=== PATIENT | female | born 1935 | race Caucasian/White ===

== ENCOUNTER 2016-09-10 12:34 | Day surgery (SDC) | payer MEDICARE, OTHER ==
--- NOTE | ~2016-09-10 | EGD ---
EGD REPORT [facility] [address] [place] [address] NAME: LALO COSTA : [birth year] STATUS : REG [facility] [place] PAT#: [id number] AGE: 81 ADM/REG DATE : 09/10/16 MR#: [id number] REPORT SERV DATE: 09/10/16 DICTATED BY: DATE: REPORT STATUS : Draft TRANSCRIBED BY: [employer] DATE: 09/10/16 [facility] Center Patient Name: Lalo Costa Date of : 1935 Attending MD: EMILY KUO MD Procedure Date No Time: 09/10/2016 Procedure: Colonoscopy Indications: Abdominal pain in the left lower quadrant Referring MD: DEVYN CABELLO MD, DEVYN ALEMAN III, MD Medicines: Monitored Anesthesia Care Complications: No immediate complications. Procedure: Pre-Anesthesia Assessment: - ASA Grade Assessment: II - A patient with mild systemic disease. After I obtained informed consent, the scope was passed under direct vision. Throughout the procedure, the patient's blood pressure, pulse, and oxygen saturations were monitored continuously. The PCF [id number] was introduced through the anus and advanced to the terminal ileum, with identification of the appendiceal orifice and IC valve. The colonoscopy was performed without difficulty. The patient tolerated the procedure well. The quality of the bowel preparation was adequate. Findings: The digital rectal exam was normal. Pertinent negatives include no palpable rectal lesions. The terminal ileum appeared normal. Multiple diverticula were found in the sigmoid colon. Hemorrhoids were found during retroflexion and were mild. Impression: - The examined portion of the ileum was normal. - Diverticulosis in the sigmoid colon. - Hemorrhoids. Recommendation: - Patient has a contact number available for emergencies. The signs and symptoms of potential delayed complications were discussed with the patient. Return to normal activities tomorrow. Written discharge instructions were provided to the patient. - Regular diet. - Continue present medications. - Repeat colonoscopy is not recommended for screening purposes. - Return to GI clinic PRN. EGD REPORT [facility] [address] [place] [address] NAME: LALO COSTA : [birth year] STATUS : REG [facility]#: [id number] AGE: 81 ADM/REG DATE : 09/10/16 MR#: [id number] REPORT SERV DATE: 09/10/16 DICTATED BY: DATE: REPORT STATUS : Draft TRANSCRIBED BY: [employer] DATE: 09/10/16 Procedure Code(s): --- Professional --- 87620, Colonoscopy, flexible, proximal to splenic flexure; diagnostic, with or without collection of specimen(s) by brushing or washing, with or without colon decompression (separate procedure) Diagnosis Code(s): --- Professional --- K64.9, Unspecified hemorrhoids K57.30, Diverticulosis of large intestine without perforation or abscess without bleeding R10.32, Left lower quadrant pain CPT copyright 2013 [employer]. All rights reserved. The codes documented in this report are preliminary and upon sand molder review may be revised to meet current compliance requirements. EMILY KUO MD 09/10/2016 3:15 PM This report has been signed electronically. Number of Addenda: 0 Note Initiated On: 09/10/2016 2:41 PM Scope Withdrawal Time 0 hours 9 minutes 20 seconds [address] [place] [address]
[~2016-09-10 12:34] MED LIST: AMB5 PO; AMIT25 PO; CALCIUM PO; EVISTA60 PO; GLUCCHONDR PO; LEVOTHYROXIN50 MCG PO; PROAMAT5 PO; PROBIOTIC PO; STRESS 500 PO; VITAMIN D PO
== END 2016-09-10 23:59 | disposition home or self-care (01) ==
LOC: DMU 12:34
PROVIDERS: Internal Medicine Gastroenterology
PROC: 0DJD8ZZ Inspection of Lower Intestinal Tract, Via Natural or Artificial Opening Endoscopic (ICD-10-PCS; principal; 2016-09-10 14:00)
DX: K57.30 Diverticulosis of large intestine without perforation or abscess without bleeding (principal); K64.9 Unspecified hemorrhoids; I10 Essential (primary) hypertension; E03.9 Hypothyroidism, unspecified; Z87.891 Personal history of nicotine dependence; Z96.1 Presence of intraocular lens; Z98.41 Cataract extraction status, right eye; Z98.42 Cataract extraction status, left eye; Z90.710 Acquired absence of both cervix and uterus; Z98.890 Other specified postprocedural states; Z79.899 Other long term (current) drug therapy